=== PATIENT | female | born 1940 | race Caucasian/White ===

== ENCOUNTER 2017-08-12 08:06 | Day surgery (SDC) | payer MEDICARE ==
[2017-08-12] VITALS (8 sets, daily range): BP systolic 109–143; BP diastolic 49–71; PULSE 58–72; RESP 16–20; TEMP 97.5–97.9; O2SAT 92–97
[~2017-08-12] VITALS: Ht 165.1 cm; Wt 71.4 kg
[~2017-08-12 08:06] MED LIST: ALEN70 PO; DARV PO; DIAZ5 PO; FEMA2.5T PO; LATA.005%O OU; OYST500T77 PO
[2017-08-12] MEDS ORDERED: DILT1TAB4 PO (08:34)
[2017-08-12] MEDS ORDERED: APIX5TAB PO (08:34)
[2017-08-12] MEDS ORDERED: ENAL2.5T PO (08:34)
[2017-08-12] MEDS ORDERED: LACTCAP8 PO (08:34)
[2017-08-12] MEDS ORDERED: LATA0.002 EACH EYE (08:34)
[2017-08-12] MEDS ORDERED: AMIO200T PO (08:34)
[2017-08-12] MEDS ORDERED: FURO20TA PO (08:34)
[2017-08-12] MEDS ORDERED: BIOTCAP PO (08:34)
[2017-08-12] MEDS ORDERED: CHOL5000 PO (08:34)
[2017-08-12] MEDS ORDERED: CALC1TAB87 PO (08:34)
[2017-08-12] MEDS ORDERED: SODIUM CHLOR 0.9% 1000 ML IV SCH (09:00)
[2017-08-12] MEDS ORDERED: LIDOCAINE HCL 1% 20 ML VIAL ONE (09:30)
[2017-08-12] MEDS ORDERED: MIDAZOLAM HCL 2 MG/2 ML VIAL ONE (09:46)
--- NOTE | 2017-08-12 10:58 | RADRPT ---
EXAM DATE/TIME: 08/12/2017 10:37 [facility] COMPARISON: No previous studies available for comparison. INDICATIONS : Evaluate for pneumothorax after right lung biopsy. MEDICAL HISTORY : Hypertension. SURGICAL HISTORY : Rigth lung biopsy. ENCOUNTER: Initial ACUITY: 1 day PAIN SCORE: 0/10 LOCATION: Bilateral chest FINDINGS: The miniscule pneumothorax identified on the post biopsy CT scan is not easily visualized on the plai n x-ray. Right lung mass is stable. The heart is mildly prominent. The left lung is clear. CONCLUSION: Miniscule pneumothorax identified on the post biopsy CT scan is not easily visualized on the plain x- ray. Stable right lung mass. Mild cardiomegaly. Win Bender MD on August 12, 2017 at 10:55 Board Certified Radiologist. This report was verified electronically.
--- NOTE | 2017-08-12 11:00 | RADRPT ---
EXAM DATE/TIME: 08/12/2017 10:03 [facility] COMPARISON: No previous studies available for comparison. INDICATIONS : Right lung mass. SEDATION TIME: 30 minutes BIOPSY SITE: Right MEDICATION(S): 1.) 2 mg midazolam (Versed) IV 2.) 100 mcg fentanyl (Sublimaze) IV DEVICE(S): 1.) 18 gauge Temno core biopsy needle MEDICAL HISTORY : Diabetes mellitus type 2. Hypertension. SURGICAL HISTORY : None. ENCOUNTER: Initial ACUITY: 1 day PAIN SCORE: 0/10 LOCATION: Right posterior lung A total of one core specimen(s) were obtained and sent to the laboratory for pathologic evaluation. PROCEDURE: 1. CT guided lung biopsy. 2. Conscious sedation with continuous EKG and oximetry monitoring. 3. EKG and oximetry remained stable throughout the procedure. Prior to the procedure informed consent was obtained. Any appropriate prior imaging studies were rev iewed. Using automated exposure control and adjustment of the mA and/or kV according to patient size, radiation dose was kept as low as reasonably achievable to obtain optimal diagnostic quality images. DICOM format image data is available electronically for review and comparison. The site was prepped in a sterile fashion. Full sterile technique was used, including cap, mask, asher rile gloves and gown and a large sterile sheet. Hand hygiene and 2% chlorhexidine and/or betadine/al cohol prep was utilized per protocol for cutaneous antisepsis. The skin and subcutaneous tissues wer e infiltrated with local anesthetic solution. With CT guidance the previously identified target was localized. Biopsy was performed using the presc ribed needle as above. Adequate hemostasis was obtained with compression at the puncture site. Follow-up CT scan reveals a miniscule pneumothorax. Conscious sedation was performed with the prescribed dosages and duration as above in the presence of an independent trained radiology nurse to assist in the monitoring of the patient. EKG and oximetry remained stable throughout the procedure. The patient tolerated the procedure well and there were no complications. The patient was sent to Radiology Outpatient Unit in stable condition. CONCLUSION: Successful CT guided biopsy with miniscule pneumothorax noted. Win Bender MD on August 12, 2017 at 10:56 Board Certified Radiologist. This report was verified electronically.
--- NOTE | 2017-08-12 12:51 | RADRPT ---
EXAM DATE/TIME: 08/12/2017 12:25 [facility] COMPARISON: CT NEEDLE BIOPSY LUNG, RIGHT, August 12, 2017, 10:03. CHEST EXPIRATION ONLY, August 12, 2017, 10 :37. INDICATIONS : Status post right lung biopsy. MEDICAL HISTORY : Hypertension. Atrial fibrillation SURGICAL HISTORY : Right breast lumpectomy. ENCOUNTER: Subsequent ACUITY: 1 day PAIN SCORE: 0/10 LOCATION: Right chest FINDINGS: There is no evidence of pneumothorax status post right lung biopsy. Cardiomegaly is stable. Left basi lar atelectasis is again noted. CONCLUSION: No evidence of pneumothorax status post right lung biopsy. Win Bender MD on August 12, 2017 at 12:48 Board Certified Radiologist. This report was verified electronically.
== END 2017-08-12 15:03 | disposition home or self-care (01) ==
LOC: HRAD 08:06 → HRIP 08:11 → HRAD 15:03
DX: J21.9 Acute bronchiolitis, unspecified (principal); I10 Essential (primary) hypertension; I48.91 Unspecified atrial fibrillation; Z79.01 Long term (current) use of anticoagulants
CPT/HCPCS: 32405; 71045; 77012; 88305; J2250; J3010; J7030